=== PATIENT | female | born 1960 | race Caucasian/White ===

== ENCOUNTER → 2018-02-24 | Outpatient (CLI) | payer BC ==
[~2018-02-24] MED LIST: ESTR0.5T PO; ESTR1PAT79 TP; LEVO88TA4 PO; PROG100C16 PO
== END | disposition home or self-care (01) ==
LOC: STAR 12:53
PROVIDERS: ATTEND Surgery
DX: Z01.818 Encounter for other preprocedural examination (principal)
CPT/HCPCS: 93005

== ENCOUNTER 2018-03-03 10:07 | Inpatient (IN) | payer BC ==
[~2018-03-03] VITALS: Ht 154.9 cm; Wt 64.6 kg
[~2018-03-03 10:07] MED LIST changes: +BUPIVACAINE/PF-EPI 0.5% 1:200K ONE
[2018-03-03] MEDS ORDERED: LACTATED RINGERS 1,000 ML IV SCH (10:38)
[2018-03-03] MEDS ORDERED: ONDANSETRON ODT 8 MG PO ONE (11:00)
[2018-03-03] MEDS ORDERED: GABAPENTIN 300 MG CAPSULE PO ONE (11:00)
[2018-03-03] MEDS ORDERED: LIDOCAINE-MPF 1%, 2ML INFIL ONE (11:00)
[2018-03-03] MEDS ORDERED: ACETAMINOPHEN 500 MG TABLET PO ONE (11:00)
[2018-03-03] MEDS ORDERED: FENTANYL PF 250 MCG/5ML ONE (12:33)
[2018-03-03] MEDS ORDERED: MIDAZOLAM 1 MG/ML, 2ML ONE (12:33)
[2018-03-03] MEDS ORDERED: ROCURONIUM 10 MG/ML,10ML ONE (13:34)
[2018-03-03] MEDS ORDERED: PHENYLEPHRINE 10 MG/ML ONE (13:34)
[2018-03-03] MEDS ORDERED: SUCCINYLCHOLINE 20 MG/ML, 10ML ONE (13:34)
[2018-03-03] MEDS ORDERED: ONDANSETRON 2MG/ML, 2ML IV PRN ×2 (14:30→17:30)
[2018-03-03] MEDS ORDERED: EPHEDRINE 50 MG/ML, 1ML IM PRN (14:30)
[2018-03-03] MEDS ORDERED: SCOPOLAMINE PATCH, 1.5MG PATCH.TD72 TD PRN (14:30)
[2018-03-03] MEDS ORDERED: ALBUTEROL/IPRATROPIUM 2.5MG/0.5MG, 3 ML NPPB PRN (14:30)
[2018-03-03] MEDS ORDERED: LABETALOL 5MG/ML, 20ML IV PRN (14:30)
[2018-03-03] MEDS ORDERED: hydrALAzine 20 MG/ML, 1ML IV PRN ×2 (14:30→17:30)
[2018-03-03] MEDS ORDERED: PROMETHAZINE 25 MG SUPP PR PRN (14:30)
[2018-03-03] MEDS ORDERED: MEPERIDINE/PF 25MG/0.5ML IVPush PRN (14:30)
[2018-03-03] MEDS ORDERED: MIDAZOLAM 1 MG/ML, 2ML IV PRN (14:30)
[2018-03-03] MEDS ORDERED: OXYcodone 5 MG/5 ML ORAL.SOL UDC PO PRN (14:30)
[2018-03-03] MEDS ORDERED: HYDROmorphone 1 MG/ML, 1ML IV PRN (14:30)
[2018-03-03] MEDS ORDERED: PROPOFOL 10 MG/ML, 20ML ONE (14:58)
[2018-03-03] MEDS ORDERED: CEFAZOLIN 1,000 MG ONE (14:58)
[2018-03-03] MEDS ORDERED: DEXAMETHASONE 4 MG/ML, 1ML ONE (14:58)
[2018-03-03] MEDS ORDERED: LIDOCAINE-MPF 2% ,5ML ONE (14:58)
[2018-03-03] MEDS ORDERED: ONDANSETRON 2MG/ML, 2ML ONE (14:58)
[2018-03-03] MEDS: FENTANYL PF 100 MCG/2ML IV PRN ×2 (15:39→15:45)
[2018-03-03] MEDS ORDERED: HYDROmorphone 2 MG/ML, 1ML ONE (15:46)
[2018-03-03] MEDS ORDERED: MEPERIDINE/PF 50 MG/ML ONE (15:55)
[2018-03-03] MEDS ORDERED: ACETAMINOPHEN 650 MG SUPP PR PRN (17:00)
[2018-03-03] MEDS ORDERED: ACETAMINOPHEN 325 MG TABLET PO PRN (17:00)
[2018-03-03 19:30] VITALS: BP 138/69
[2018-03-03] MEDS: CALCIUM/VITAMIN D3 250-125 TABLET PO SCH (20:06)
[2018-03-03] MEDS: SODIUM CHLORIDE FLUSH 10ML SYR IVF SCH (20:06)
[2018-03-03] MEDS: HYDROcodone/APAP 5/325 TABLET PO PRN (22:08)
[2018-03-03 23:50] VITALS: BP 118/65
[2018-03-04] MEDS: HYDROcodone/APAP 5/325 TABLET PO PRN ×2 (02:46→09:07)
[2018-03-04 03:49] VITALS: BP 116/70
[2018-03-04 05:01] LABS: CALCIUM 9.1 mg/dL (8.5-10.1)
[2018-03-04] MEDS ORDERED: LEVOTHYROXINE 100 MCG TABLET PO SCH (06:00)
[2018-03-04 06:44] VITALS: BP 131/71
[2018-03-04] MEDS: CALCIUM/VITAMIN D3 250-125 TABLET PO SCH (07:42)
[2018-03-04] MEDS: SODIUM CHLORIDE FLUSH 10ML SYR IVF SCH (07:42)
[2018-03-04] MEDS ORDERED: HYDR-3240 PO (08:49)
[2018-03-04] MEDS ORDERED: LEVO100T PO (08:50)
[2018-03-04] MEDS ORDERED: PROGESTERONE 100 MG CAPSULE PO SCH (09:00)
== END 2018-03-04 09:45 | disposition home or self-care (01) | DRG 627 ==
LOC: OUT 10:07 → 4NOR 16:50 → OBSVTOIN 16:57 → OUT 17:22 → DCLOUNGE 03-04 09:30
PROVIDERS: ADMIT Surgery; ATTEND Surgery
PROC: 4A11X4G Monitoring of Peripheral Nervous Electrical Activity, Intraoperative, External Approach (ICD-10-PCS; 2018-03-03)
PROC: 0GTK0ZZ Resection of Thyroid Gland, Open Approach (ICD-10-PCS; principal; 2018-03-03 12:15)
DX: C73 Malignant neoplasm of thyroid gland (principal); E03.9 Hypothyroidism, unspecified; Z79.899 Other long term (current) drug therapy; Z82.3 Family history of stroke; Z80.8 Family history of malignant neoplasm of other organs or systems; Z72.89 Other problems related to lifestyle
CPT/HCPCS: 36415; 82310; 83970; 88307; G0378; J0690; J1100; J1170; J2175; J2250; J2405; J2704; J3010; J3490; Q0162; C1760; J0330; J2370; J7120